=== PATIENT | male | born 2000 | race American Indian/Alaskan Native ===

== ENCOUNTER 2020-03-19 09:43 | Emergency (ER) | payer MEDICAID ==
[2020-03-19] MEDS ORDERED: fentaNYL 100 MCG/2 ML SDV IVPUSH ONE (10:08)
[2020-03-19] MEDS ORDERED: Midazolam 1 MG/ML 5 ML SDV IVPUSH ONE (10:08)
[2020-03-19] MEDS ORDERED: Metoclopramide 10 MG/2 ML SDV IVPUSH ONE (10:09)
--- NOTE | 2020-03-19 10:13 | EDM.PDOC ---
ED HPI GENERAL MEDICAL PROBLEM - General Chief Complaint: Upper Extremity Injury/Pain Stated Complaint: L SHOULDER INJURY Time Seen by Provider: 03/19/20 10:08 Source of Information: Reports: Patient History Limitations: Reports: No Limitations - History of Present Illness INITIAL COMMENTS - FREE TEXT/NARRATIVE: 20-year-old male presents to the ED with an acute injury to his left shoulder. He states he has had a dislocation of his shoulder on 2 previous occasions. He was playing softball this morning and dove for a base and his left arm went up above his head. This resulted in a anterior dislocation of his shoulder. Patient presents in significant pain and discomfort. Holding his arm in abduction Onset: Today, Sudden Onset Date: 03/19/20 Onset Time: 09:30 Duration: Minutes: Location: Reports: Upper Extremity, Left (With anterior dislocation.) Quality: Reports: Ache, Throbbing Severity: Moderate (8 out of 10) Improves with: Reports: None Worsens with: Reports: Movement Context: Reports: Trauma (Playing baseball and dove into a base and his left arm went up above his head and a outstretched position. This resulted in anterior dislocation of his left shoulder). Denies: Activity (Movement.), Exercise, Lifting, Sick Contact Associated Symptoms: Reports: No Other Symptoms Treatments [employer]PERINTENDENT: Reports: Other (see below) (None.) Left Shoulder Pain Score (Numeric/FACES): 10 - Related Data Allergies Allergy/AdvReac Type Severity Reaction Status Date / Time No Known Allergies Allergy Verified 03/19/20 10:07 Home Meds: Home Meds . 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 has had a dislocated 3 times in the past.) Social & Family History - Living Situation & Occupation Living situation: Reports: Single Review of Systems - Review of Systems Review Of Systems: See Below Constitutional: Reports: No Symptoms Eyes: Reports: No Symptoms Ears: Reports: No Symptoms Nose: Reports: No Symptoms Mouth/Throat: Reports: No Symptoms Respiratory: Reports: No Symptoms Cardiovascular: Reports: No Symptoms GI/Abdominal: Reports: No Symptoms Genitourinary: Reports: No Symptoms Musculoskeletal: Reports: Shoulder Pain ( anterior dislocation left shoulder), Other (History of recurrent) Skin: Reports: No Symptoms ( shoulder pain at present) Neurological: Reports: No Symptoms Psychiatric: Reports: No Symptoms ED EXAM, GENERAL - Physical Exam Exam: See Below Exam Limited By: No Limitations General Appearance: Alert, WD/WN, Moderate Distress, Other (Temperature is 36.4 hole heart rate is 86 and sinus respiratory to 16) Eye Exam: Bilateral Eye: Normal Inspection, Periorbital Changes Neck: Normal Inspection, Supple, Non-Tender, Full Range of Motion. No: Lymphadenopathy (L), Lymphadenopathy (R) Respiratory/Chest: No Respiratory Distress, Lungs Clear, Normal Breath Sounds, No Accessory Muscle Use Cardiovascular: Normal Peripheral Pulses, Regular Rate, Rhythm, No Edema, No Gallop, No Murmur, No Rub Peripheral Pulses: 3+: Carotid (L), Carotid (R), Posterior Tibial (L), Posterior Tibial (R), Dorsalis Pedis (L), Dorsalis Pedis (R) GI/Abdominal: Normal Bowel Sounds, Soft, Non-Tender, No Organomegaly, No Abnormal Bruit, No Mass, Pelvis Stable, Other (K. Rashaad abdomen without any scars.) Extremities: Other (Examination of the right upper extremity shows no abnormalities. The left shoulder shows a drop off at the acromioclavicular joint with an anterior dislocation of the shoulder clinically. Stephan barcenas has normal ulnar and radial pulses to his wrist. He has normal sensation in the axillary nerve root distribution left shoulder. He is able to abduct and adduct his fingers normally can) Neurological: Alert ( revealing ulnar nerve is intact.), Oriented, CN II-XII Intact, Normal Cognition Psychiatric: Anxious, Other Skin Exam: Warm, Dry (Good deal of pain.), Intact, Normal Color, No Rash ED TRAUMA EXTREMITY PROCEDURES - Joint Reduction Shoulder Sedation: Conscious Sedation Pre-Procedure NV Status: Normal Post-Procedure NV Status: Normal Technique: Traction/Counter Traction Number of Attempts: 1 Post-Reduction Imaging: Completely Reduced Joint Reduction Complications: No ED PROCEDURAL SEDATION - Pre Procedure Indications: shoulder dislocation Preparations: procedure explained, consent signed, oxygen, continuous pulse oximeter, continuous no bake molder, constant attendance - Physical Exam Airway: normal anatomy Cardiovascular: normal heart sounds Respiratory: normal breath sounds Neurological: alert Meilampati Classification: 1 (soft palate, anterior/posterior tonsillar pillars, uvula visible) - Procedure Sedation Sedation: versed (parenteral) (8 mg in total.), fentanyl (100 mcg) ASA Classification: 1 (Normal healthy patient) - Intra Procedure Condition during procedure: lightly sedated, oxygenation stable Complications: none - Post Procedure Condition after procedure: alert, NAD, responds to verbal stimuli - Discharge Condition Patient returned to pre-procedure baseline: Yes Alert prior to discharge: Yes Ambulatory with assistance: Yes Vital signs normal: Yes Time spent with sedated patient: 10 min Course - Vital Signs Last Recorded V/S: Last Vital Signs Temp 36.4 C 03/19/20 10:05 Pulse 86 03/19/20 10:05 Resp 16 03/19/20 10:05 BP 134/87 03/19/20 10:05 Pulse Ox 97 03/19/20 10:05 - Orders/Labs/Meds Orders: Active Orders 24 hr Category Date Time Status Sodium Chloride 0.9% [Normal Saline] 1,000 ml Med 03/19/20 10:15 Active IV ASDIRECTED Medication Orders Sodium Chloride (Normal Saline) 1,000 mls @ 150 mls/hr IV ASDIRECTED MADHU Last Admin: 03/19/20 10:33 Dose: 150 mls/hr Documented by: DEEPA Meds: Medications Generic Name Dose Route Start Last Admin Trade Name Freq PRN Reason Stop Dose Admin Sodium Chloride 1,000 mls @ 150 mls/hr 03/19/20 10:15 03/19/20 10:33 Normal Saline IV 150 mls/hr ASDIRECTED MADHU Administration Discontinued Medications Generic Name Dose Route Start Last Admin Trade Name Freq PRN Reason Stop Dose Admin Fentanyl 100 mcg 03/19/20 10:08 03/19/20 10:34 Sublimaze IVPUSH 03/19/20 10:09 100 mcg ONETIME ONE Administration Metoclopramide HCl 7.5 mg 03/19/20 10:09 03/19/20 10:34 Reglan IVPUSH 03/19/20 10:10 7.5 mg ONETIME ONE Administration Midazolam HCl 5 mg 03/19/20 10:08 03/19/20 10:35 Versed 1 Mg/Ml IVPUSH 03/19/20 10:09 Not Given ONETIME ONE Midazolam HCl Confirm 03/19/20 10:22 03/19/20 10:36 Versed 1 Mg/Ml Administered 03/19/20 10:23 6 mg Dose Administration 6 mg .ROUTE .STK-MED ONE Midazolam HCl Confirm 03/19/20 10:42 03/19/20 10:50 Versed 1 Mg/Ml Administered 03/19/20 10:43 2 mg Dose Administration 4 mg .ROUTE .STK-MED ONE - Radiology Interpretation Free Text/Narrative:: 20-year-old male presents to the ED with an acute anterior dislocation of his left shoulder. This occurred while he was playing baseball this morning and dove for a base with an outstretched left hand above his head. He has had previous dislocation of the left shoulder x3 in the past. Examination confirms anterior dislocation left shoulder. He has normal axillary nerve sensation over the anterior deltoid and superior shoulder. He has normal abduction abduction of his fingers suggesting ulnar nerve intact. He has no weakness over the radial nerve distribution dorsal right hand. Plan x-ray of the shoulder to be done. He will then receive conscious sedation utilizing Versed and fentanyl. - Re-Assessments/Exams Free Text/Narrative Re-Assessment/Exam: 03/19/20 10:56 x-ray of the left shoulder done prior to reduction reveals an anterior dislocation with a questionable Hill-Sachs deformity of the humeral head which is considered slight. Patient required 8 mg of Versed in total and 100 mcg of fentanyl to provide adequate sedation to reduce his shoulder on one attempt. Post reduction films will be obtained. 03/19/20 12:09 postreduction film of the left shoulder reveals return of the humeral head to normal anatomical position in the glenoid fossa. There appears to be mild separation of the acromioclavicular joint of unknown antique witty. No fractures are identified within the shoulder although there is a suspect mild Hill-Sachs deformity superior aspect of the humeral head. This was appreciated prior to reduction today. Will be placed in a sling and swath for the next week to 10 days to provide comfort. 03/19/20 12:13 reassessment the patient is fast asleep and not easily arousable. His O2 sats are 100% on room air. We will await for him to recover from conscious sedation before discharge. 03/19/20 13:13 Patient has recovered satisfactory from conscious sedation is up walking talking and been to the bathroom. He is alert oriented and playing with his phone. He believes he can get by with just Motrin for shoulder pain. He will stay in the sling and swath for the next 10 days. Advised follow-up with an orthopedic surgeon to get his shoulder repaired recommended Dr. Gonzales in [place] since he is from [place]. Departure - Departure Time of Disposition: 13:14 Disposition: Home, Self-Care 01 Condition: Fair Clinical Impression: Closed anterior dislocation of left shoulder Qualifiers: Encounter type: initial encounter Qualified Code(s): S43.015A - Anterior dislocation of left humerus, initial encounter - Discharge Information *PRESCRIPTION DRUG MONITORING PROGRAM REVIEWED*: Not Applicable *COPY OF PRESCRIPTION DRUG MONITORING REPORT IN PATIENT ÁNGELA: Not Applicable Instructions: Shoulder Dislocation Referrals: PCP,None [Primary Care Provider] - Forms: ED Department Discharge Additional Instructions: Evaluation in the emergency room today in regards to acute injury to your left shoulder that occurred while playing baseball this morning. While diving into a base with your left arm above your head it produced an anterior dislocation of your shoulder. This was confirmed on x-ray with a slight Hill-Sachs deformity which means a slight dimpling of the upper humerus bone which is like a fracture. Left shoulder was reduced back into normal position using conscious sedation with 8 mg of Versed and 100 mcg of fentanyl IV. Postreduction x-rays reveal satisfactory return of your shoulder joint to normal. There is a slight depression in the top of the humerus bone that was present before we performed our did reduction today. This is called the Hill-Sachs deformity and its like a fracture of the top of the humeral bone. It is of no consequence. When she recovered satisfactorily from conscious sedation you may return to normal activities including eating and drinking per normal. I would advise you to have a orthopedic surgeon consultation in regards to having her left shoulder repaired. I would recommend Dr[facility] [place]. .Usually the sling and swath should remain in place for about 10 days time. May ice the area 1/2-hour out of every 4 hours today and tomorrow. Sepsis Event Note (ED) - Evaluation Sepsis Screening Result: No Definite Risk - Focused Exam Vital Signs: Vital Signs Temp Pulse Resp BP Pulse Ox 03/19/20 10:05 36.4 C 86 16 134/87 97 - My Orders Last 24 Hours: My Active Orders 03/19/20 10:15 Sodium Chloride 0.9% [Normal Saline] 1,000 ml IV ASDIRECTED - Assessment/Plan Last 24 Hours: My Active Orders 03/19/20 10:15 Sodium Chloride 0.9% [Normal Saline] 1,000 ml IV ASDIRECTED
[2020-03-19] MEDS ORDERED: Sodium Chloride 0.9% 1,000 ML IV SCH (10:15)
[2020-03-19] MEDS ORDERED: Midazolam 1 MG/ML 2 ML SDV ONE ×2 (10:22→10:42)
--- NOTE | 2020-03-19 11:03 | CR ---
Left shoulder: 2 views of the left shoulder were obtained. Comparison: No previous shoulder study. Anterior dislocation is seen. Questionable slight Hill-Sachs deformity within the humeral head. No additional abnormality is appreciated. Impression: 1. Dislocated left shoulder with questionable slight Hill-Sachs deformity. Diagnostic code #3 Study was dictated in MDT
--- NOTE | 2020-03-19 12:22 | CR ---
Left shoulder: Single AP view of the left shoulder was obtained. Comparison: Previous left shoulder study performed earlier on same day (10:24 AM). Previous dislocation has been reduced. Slight vertical sclerotic line is noted within the lateral humeral head possibly from minimal Hill-Sachs deformity. No additional abnormality is seen. Impression: 1. Reduction of previous dislocation. 2. Other finding as noted above. Diagnostic code #2 Study was dictated in MDT
== END 2020-03-19 13:22 | disposition home or self-care (01) ==
LOC: JD.ED 09:43
DX: S43.015A Anterior dislocation of left humerus, initial encounter (principal); X58.XXXA Exposure to other specified factors, initial encounter; Y93.64 Activity, baseball
CPT/HCPCS: 23650; 73020; 73030; 96374; 99152; 99153; 99283; J2250; J2765; J3010; J7030; 23655